=== PATIENT | male | born 1960 | race Caucasian/White ===

== ENCOUNTER → 2016-08-05 | Outpatient (CLI) | payer OTHER ==
--- NOTE | 2016-08-05 09:53 | NM ---
EXAMINATION: Nuclear medicine myocardial perfusion study with exercise stress test. HISTORY: Chest pain. PROCEDURE: Patient exercised according to Pasha protocol for 6 minutes and 41 seconds and achieved maximal hear t rate of 147 beats per minute. Adequate exercise. Following intravenous administration of 10.1 and 32.1 mCi of technetium 99m sestamibi, stress and rest SPECT images including gating imaging was performed. FINDINGS: Stress and rest myocardial SPECT images demonstrates mildly decreased perfusion along the inferior w all however more prominent on the rest imaging. Review of gated images demonstrates normal wall motion, contractility and wall thickening. The left ventricular ejection fraction is 78 %. The left ventricular chamber size is normal. IMPRESSION: 1. No evidence of myocardial ischemia. 2. Normal ventricular chamber size and function with ejection fraction of 78 %.
--- NOTE | 2016-08-05 11:00 | PCM.PRNOTE ---
- Free Text/Narrative Note: Cardiolite exercise stress test Resting blood pressure 140/92, pulse 82 Patient exercised per Pasha protocol 6 minutes and 41 seconds and achieved a maximum heart rate of 147 beats per minute which was 91% of age-predicted maximum heart rate. Mets: 7.0 double product 85052 Resting EKG revealed normal sinus rhythm With exertion no significant ST-T changes were noted. Test stopped at target heart rate. No complaints of chest pain during exercise or recovery. Impression: #1. Negative stress test for ischemic ST-T changes #2. Poor exercise tolerance #3. Cardiolite portion of test pending
== END ==
LOC: MW.NM 06:32
PROVIDERS: ATTEND Nurse Practitioner Family
DX: R07.9 Chest pain, unspecified (principal)
CPT/HCPCS: 78452; 78452-26; 93017; A9500